=== PATIENT | female | born 1990 | race Caucasian/White ===

== ENCOUNTER 2020-08-26 10:12 | Emergency (ER) | payer MEDICAID ==
[~2020-08-26] VITALS: Ht 160 cm; Wt 72.7 kg
[2020-08-26 11:01] LABS: BASOPHILS % (AUTO) 0.2 % (0-1); EOSINOPHILS % (AUTO) 0.5 % (0-6); HEMATOCRIT 38.1 % (35.0-45.0); HEMOGLOBIN 12.7 g/dl (12.0-16.0); LYMPHOCYTES # (AUTO) 1.3 X10'3 (1.1-4.8); LYMPHOCYTES % (AUTO) 21.3 % (21-51); MEAN CORPUSCULAR HEMOGLOBIN 29.8 PG (27.0-31.0); MEAN CORPUSCULAR HGB CONC 33.5 g/dL (33.0-36.5); MEAN CORPUSCULAR VOLUME 89.2 FL (78-98); MEAN PLATELET VOLUME 8.9 FL (7.4-10.4); MONOCYTES # (AUTO) 0.4 X10'3 (0-0.9); MONOCYTES % (AUTO) 6.1 % (2-12); NEUTROPHILS # (AUTO) 4.5 X10'3 (1.8-7.7); NEUTROPHILS % (AUTO) 71.9 % (42-75); PLATELET COUNT 185 X10'3 (140-440); RED BLOOD COUNT 4.27 X10'6 (4.20-5.60); RED CELL DISTRIBUTION WIDTH 13.8 % (11.5-14.5); WHITE BLOOD COUNT 6.3 X10'3 (4.5-11.0)
[2020-08-26 11:06] LABS: URINE HCG NEGATIVE (NEG)
[2020-08-26 11:12] LABS: CLARITY,URINE CLOUDY (Clear); COLOR,URINE YELLOW (Yellow); GLUCOSE, URINE NEGATIVE (Neg); KETONES,URINE NEGATIVE (Neg); LEUKOCYTE ESTERASE ,URINE NEGATIVE (Neg); NITRITES, URINE POSITIVE (Neg); OCCULT BLOOD,URINE SMALL (Neg); PROTEIN,URINE TRACE mg/dl (Neg)
[2020-08-26 11:14] LABS: ALANINE AMINOTRANSFERASE 23 U/L (12-78); ALBUMIN 4.4 G/DL (3.4-5.0); ALBUMIN/GLOBULIN RATIO 1.2 (1.1-1.5); ALKALINE PHOSPHATASE 77 IU/L (46-116); ANION GAP 11 (8-16); ASPARTATE AMINO TRANSFERASE 17 U/L (10-37); BILIRUBIN,TOTAL 0.7 MG/DL (0.1-1.0); BLOOD UREA NITROGEN 9 MG/DL (7-18); BUN/CREATININE RATIO 11.4 (6.6-38.0); CALCIUM 9.3 MG/DL (8.5-10.1); CHLORIDE 107 MMOL/L (99-107); CREATININE 0.79 MG/DL (0.40-0.90); GLUCOSE 107 MG/DL (70-104); SODIUM 144 MMOL/L (135-145); TOTAL CARBON DIOXIDE 25.7 MMOL/L (24-32); TOTAL PROTEIN 8.2 G/DL (6.4-8.2); eGFR 87 ML/MIN
[2020-08-26 11:16] LABS: UA COLLECTION TYPE CLN CATCH MIDSTREAM
[2020-08-26 11:18] LABS: BACTERIA,URINE 4+ /HPF (Neg); MUCUS STRANDS MODERATE /LPF (Neg); SQUAMOUS EPITHELIAL CELL,UR MODERATE /LPF (FEW)
[2020-08-26 11:19] LABS: RBC,URINE 0-2 /HPF (0-2)
[2020-08-26 11:20] LABS: URINE AMPHETAMINE SCREEN NEGATIVE (Neg); URINE BARBITUATE SCREEN NEGATIVE (Neg); URINE BENZODIAZEPINES SCREEN NEGATIVE (Neg); URINE CANNABINOID SCREEN NEGATIVE (Neg); URINE COCAINE SCREEN NEGATIVE (Neg); URINE METHADONE SCREEN NEGATIVE (Neg); URINE OPIATE SCREEN NEGATIVE (Neg); URINE PHENCYCLIDINE SCREEN NEGATIVE (Neg)
[2020-08-26 11:25] LABS: ETHANOL < 0.010 GM/DL (0.0-0.010)
[2020-08-26] MEDS: cephalexin 250mg capsule PO SCH ×4 (12:08→20:17)
--- NOTE | 2020-08-26 14:29 | NUR ---
[facility] [employer] AT BEDSIDE TALKING WITH PT.
--- NOTE | 2020-08-26 16:42 | NUR ---
PT'S MOTHER AMBLER: [phone]
--- NOTE | 2020-08-26 17:20 | NUR ---
CHERIE FROM [facility] DISCUSSED THE SAFETY PLAN WITH THE PT, AND SHE WILL BE GOING TO [facility] TOMORROW (08/27/20). CALL [facility] @ [phone] OR [phone] AND ASK FOR PO COHEN TO CONFIRM THE PT'S CARE.
[2020-08-26] MEDS ORDERED: Melatonin 3mg tablet PO ONE (18:45)
[2020-08-26] MEDS ORDERED: acetaminophen 325mg tablet PO ONE (18:45)
[2020-08-26] MEDS ORDERED: hydrOXYzine 25 MG tablet PO ONE (18:45)
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
--- NOTE | 2020-08-26 20:20 | NUR ---
The patient is resting on her bed.
--- NOTE | 2020-08-26 20:57 | NUR ---
The patient appears to be sleeping
--- NOTE | 2020-08-26 23:55 | NUR ---
The patient appears to be sleeping.
--- NOTE | 2020-08-27 02:51 | NUR ---
The patient appears to be sleeping
--- NOTE | 2020-08-27 05:40 | NUR ---
The patient appears to be sleeping.
[2020-08-27 06:18] VITALS: BP 102/64
[2020-08-27] MEDS: cephalexin 250mg capsule PO SCH (08:34)
--- NOTE | 2020-08-27 09:01 | NUR ---
PT IS NOW RESTING ON HER LEFT SIDE, WAS GIVEN HER ABX, SHE IS ACCEPTING OF CARE, NO NEEDS AT THIS TIME
--- NOTE | 2020-08-27 09:15 | NUR ---
[facility] CALLED RE PLACEMENT, SHE IS CURRENTLY SPEAKING TO THE PT TO EVAL FOR PLACEMENT
--- NOTE | 2020-08-27 09:27 | NUR ---
PT STATES THAT [facility] IS WORKING ON A PLAN, NEEDS COVID TEST AND THEY NEED TO FIND A HOTEL, THEY WILL BE CALLING ME BACK
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
--- NOTE | 2020-08-27 10:27 | NUR ---
[facility] [phone]
[2020-08-27] MEDS ORDERED: CEPH250T PO (10:47)
== END 2020-08-27 11:05 | disposition home or self-care (01) ==
LOC: ER 10:12
DX: R45.851 Suicidal ideations (principal); F32.9 Major depressive disorder, single episode, unspecified; N39.0 Urinary tract infection, site not specified; Z87.440 Personal history of urinary (tract) infections
CPT/HCPCS: 36415; 80053; 80305; 80320; 81001; 81025; 84443; 85025; 99285; Q0177